=== PATIENT | female | born 1965 | race Caucasian/White ===

== ENCOUNTER 2017-06-17 23:25 | Emergency (ER) | payer MEDICAID ==
[~2017-06-17] VITALS: Ht 160 cm; Wt 68.0 kg
[2017-06-18] MEDS ORDERED: SODIUM CHLORIDE 0.9% 1,000 ML IV ONE (00:50)
[2017-06-18] MEDS ORDERED: MORPHINE SULFATE 4 MG/ML CPJ (NOT FOR IM USE) IV STA (00:50)
[2017-06-18] MEDS ORDERED: FAMOTIDINE 20MG/2ML VIAL IV STA (00:50)
[2017-06-18] MEDS ORDERED: ONDANSETRON HCL 4MG/2ML VIAL IV STA (00:50)
[2017-06-18] MEDS ORDERED: ASPIRIN 81MG TABLET PO ONE (01:00)
[2017-06-18 01:29] LABS: BASOPHILS % 0.1 % (0.0-2.0); EOSINOPHILS % 0.1 % (0.0-5.0); HEMATOCRIT. 36.4 % (36.0-48.0); HEMOGLOBIN. 11.6 g/dL (12.0-16.0); LYMPHOCYTES % 20.5 % (20.0-50.0); MEAN CORPUSCULAR HEMOGLOBIN 22.4 pg (28.0-32.0); MEAN CORPUSCULAR VOLUME 70.1 fL (81.0-99.0); MEAN PLATELET VOLUME 9.2 fl (7.4-10.4); MONOCYTES % 6.8 % (2.0-8.0); NEUTROPHILS % 72.5 % (40.0-76.0); PLATELET 283 x1000/uL (130-400); RED BLOOD CELL COUNT 5.19 mill/uL (4.2-5.4); RED CELL DISTRIBUTION WIDTH 21.9 % (11.6-14.6)
[2017-06-18 01:30] LABS: CHLORIDE 103 mEq/L (98-107)
[2017-06-18 01:31] LABS: HCG SCREEN NEGATIVE
[2017-06-18 01:32] LABS: PROTHROMBIN TIME 10.9 sec (9.4-11.6)
[2017-06-18 01:35] LABS: ETHANOL BLOOD < 10 mg/dL
[2017-06-18 02:04] LABS: CLARITY URINE CLEAR (CLEAR); COLOR URINE YELLOW (YELLOW); KETONES URINE NEGATIVE (NEGATIVE); LEUKOCYTE ESTERASE URINE TRACE (NEGATIVE); NITRITE URINE NEGATIVE (NEGATIVE); OCCULT BLOOD URINE TRACE (NEGATIVE); PH URINE 6.5 (4.5-8.0); PROTEIN URINE 1+ (NEGATIVE); SPECIFIC GRAVITY URINE 1.026 (1.005-1.030); UROBILINOGEN URINE 0.2 E.U./dL (0.2-1.0)
[2017-06-18 02:22] LABS: *AMPHETAMINES SCREEN URINE NEGATIVE (NEGATIVE); *BARBITURATES SCREEN URINE NEGATIVE (NEGATIVE)
[2017-06-18 02:25] LABS: *BENZODIAZEPINES SCREEN URINE NEGATIVE (NEGATIVE)
[2017-06-18 02:26] LABS: *COCAINE SCREEN URINE NEGATIVE (NEGATIVE)
[2017-06-18 02:29] LABS: METHADONE URINE SCREEN NEGATIVE (NEGATIVE)
[2017-06-18 02:30] LABS: OPIATES URINE SCREEN NEGATIVE (NEGATIVE)
[2017-06-18 02:32] LABS: PHENCYCLIDINE URINE SCREEN NEGATIVE (NEGATIVE)
[2017-06-18 02:33] LABS: CANNABINOID URINE SCREEN NEGATIVE (NEGATIVE)
[2017-06-18] MEDS ORDERED: CEFTRIAXONE 1 G PREMIX 50 ML IV ONE (03:15)
[2017-06-18] MEDS ORDERED: FAMOTIDINE 20MG/2ML VIAL IV SCH (04:00)
[2017-06-18] MEDS ORDERED: FAMOTIDINE 10 MG/ML IV SCH (05:30)
[2017-06-18 05:35] VITALS: BP 150/80
== END 2017-06-18 06:00 | disposition home or self-care (01) ==
LOC: ER 23:25
DX: N39.0 Urinary tract infection, site not specified (principal); Z79.899 Other long term (current) drug therapy
CPT/HCPCS: 36415; 71045; 74176; 76705; 80053; 80305; 81003; 83605; 83690; 83880; 84484; 84703; 85025; 85610; 87077; 87086; 87186; 93005; 96361; 96365; 96375; 99285; G0482; J0696; J2270; J2405; J3490; J7030